=== PATIENT | male | born 1995 | race Caucasian/White ===

== ENCOUNTER 2019-01-29 19:56 | Emergency (ER) | payer OTHER ==
[2019-01-29] MEDS: IBUPROFEN 800 MG TAB PO (20:07)
== END 2019-01-29 21:18 | disposition home or self-care (01) ==
LOC: E/R 19:56
DX: M25.561 Pain in right knee (principal); M25.562 Pain in left knee; F15.10 Other stimulant abuse, uncomplicated
CPT/HCPCS: 73562; 73562-50; 82962; 93005; 99284-25